=== PATIENT | male | born 1960 | race Asian ===

== ENCOUNTER 2018-02-19 07:31 | Emergency (ER) | payer MEDICAID ==
[~2018-02-19] VITALS: Ht 167.6 cm; Wt 70.5 kg
[2018-02-19 08:11] VITALS: BP 175/96
== END 2018-02-19 09:09 | disposition home or self-care (01) ==
LOC: EMS 07:32
DX: N20.0 Calculus of kidney (principal); I10 Essential (primary) hypertension
CPT/HCPCS: 99281; 99283

== ENCOUNTER 2020-01-26 06:03 | Emergency (ER) | payer BC, MEDICAID ==
[~2020-01-26] VITALS: Ht 165.1 cm; Wt 72.7 kg
[2020-01-26] MEDS ORDERED: LOSA-88 PO (06:34)
[2020-01-26] MEDS ORDERED: METF-960 PO (06:34)
[2020-01-26] MEDS ORDERED: ATOR20TA86 PO (06:34)
[2020-01-26 06:42] LABS: GLUCOSE,POINT OF CARE 159 MG/DL (70-110)
[2020-01-26] MEDS ORDERED: ACETAMINOPHEN 500 MG TABLET PO ONE (07:00)
[2020-01-26] MEDS ORDERED: KETOROLAC TROMETHAMINE 30 MG/ML VIAL IM ONE (07:00)
[2020-01-26] MEDS ORDERED: LIDOCAINE 5% TRANSDERMAL PATCH TD ONE (07:00)
[2020-01-26 07:16] VITALS: BP 155/98
== END 2020-01-26 07:18 | disposition home or self-care (01) ==
LOC: EMS 06:03
DX: S39.012A Strain of muscle, fascia and tendon of lower back, initial encounter (principal); E78.00 Pure hypercholesterolemia, unspecified; I10 Essential (primary) hypertension; Z79.84 Long term (current) use of oral hypoglycemic drugs; X58.XXXA Exposure to other specified factors, initial encounter; Y93.89 Activity, other specified; Y92.89 Other specified places as the place of occurrence of the external cause; Y99.8 Other external cause status
CPT/HCPCS: 82962; 96372; 99283; J1885